=== PATIENT | male | born 1945 | race Caucasian/White ===

== ENCOUNTER → 2016-09-28 | Outpatient (CLI) | payer OTHER | LOC: BHFA 10:15 | PROVIDERS: ATTEND Internal Medicine Cardiovascular Disease | DX: I47.1 Supraventricular tachycardia (principal); I25.10 Atherosclerotic heart disease of native coronary artery without angina pectoris; I10 Essential (primary) hypertension; I44.7 Left bundle-branch block, unspecified; I42.9 Cardiomyopathy, unspecified; E78.5 Hyperlipidemia, unspecified ==

== ENCOUNTER 2017-02-19 13:23 | Emergency (ER) | payer OTHER ==
[2017-02-19 13:41] VITALS: TEMP 98.2
[2017-02-19] MEDS ORDERED: NS 1,000 ML IV ONE (15:02)
--- NOTE | 2017-02-19 15:05 | EDPHY ---
H & P Stated Complaint: nontraumatic pain at back of l knee for last 2 weeks Time Seen by Provider: 02/19/17 14:54 HPI/ROS: CHIEF COMPLAINT: Left knee pain HISTORY OF PRESENT ILLNESS: Patient is a 72-year-old man who comes to the emergency department complaining of intermittent sharp shooting brief pain to the lateral posterior aspect of his left knee. He cannot find any positions or movements that seem to exacerbate his knee. Occasionally wakes him up from sleep because it is painful. This is happened for about the last 2 days. He is concerned about a blood clot and came to the emergency department. He has a history of coronary artery disease. He is not on any blood thinners. He does also complain of increased fatigability. He states that he can only walk for about half of a block before he gets tired. He denies chest pain or shortness of breath. He states that this is not unusual for him but over the last few days it has come sooner than usual. He denies fevers. He denies recent illness. He denies nausea vomiting or diarrhea. He has been eating well. REVIEW OF SYSTEMS: Constitutional: denies: chills, fever, recent illness, recent injury EENTM: denies: blurred vision, double vision, nose congestion Respiratory: denies: cough, shortness of breath Cardiac: denies: chest pain, irregular heart rate, lightheadedness, palpitations Gastrointestinal/Abdominal: denies: abdominal pain, diarrhea, nausea, vomiting, blood streaked stools Genitourinary: denies: dysuria, frequency, hematuria, pain Musculoskeletal: See HPI Skin: denies: lesions, rash, jaundice, bruising Neurological: denies: headache, numbness, paresthesia, tingling, dizziness, weakness Hematologic/Lymphatic: denies: blood clots, easy bleeding, easy bruising Immunologic/allergic: denies: HIV/AIDS, transplant EXAM: GENERAL: Well-appearing, well-nourished and in no acute distress. HEAD: Atraumatic, normocephalic. EYES: Pupils equal round and reactive to light, extraocular movements intact, sclera anicteric, conjunctiva are normal. ENT: TMs normal, nares patent, oropharynx clear without exudates. Moist mucous membranes. NECK: Normal range of motion, supple without lymphadenopathy or JVD. LUNGS: Breath sounds clear to auscultation bilaterally and equal. No wheezes rales or rhonchi. HEART: Regular rate and rhythm without murmurs, rubs or gallops. ABDOMEN: Soft, nontender, normoactive bowel sounds. No guarding, no rebound. No masses appreciated. BACK: No CVA tenderness, no spinal tenderness, step-offs or deformities EXTREMITIES: Normal range of motion, no pitting or edema. No clubbing or cyanosis. NEUROLOGICAL: Cranial nerves II through XII grossly intact. Normal speech, normal gait. 5/5 strength, normal movement in all extremities, normal sensation PSYCH: Normal mood, normal affect. SKIN: Warm, dry, normal turgor, no visible rashes or lesions. Source: Patient Exam Limitations: No limitations - Personal History Current Tetanus/Diphtheria Vaccine: Yes Tetanus Vaccine Date: unsure - Medical/Surgical History Hx Asthma: No Hx Chronic Respiratory Disease: No Hx Diabetes: No Hx Cardiac Disease: Yes Hx Renal Disease: No Hx Cirrhosis: No Hx Alcoholism: No Hx HIV/AIDS: No Hx Splenectomy or Spleen Trauma: No Other PMH: 3 cardiac stents, arrythmias, shoulder surgery, svt - Family History Significant Family History: No pertinent family hx - Social History Smoking Status: Never smoked Alcohol Use: None Drug Use: None Constitutional: Initial Vital Signs Temperature (C) 36.8 C 02/19/17 13:38 Heart Rate 64 02/19/17 13:38 Respiratory Rate 18 02/19/17 13:38 Blood Pressure 151/74 H 02/19/17 13:38 O2 Sat (%) 96 02/19/17 13:38 O2 Delivery Mode Room Air Allergies/Adverse Reactions: pineapple [Pineapple] Allergy (Verified 02/19/17 13:37) cantaloupe Allergy (Unknown, Uncoded 04/28/10 14:14) Unknown Home Medications: Medication Instructions Recorded Aspirin [Aspirin 81mg] 81 mg PO DAILY@1800 10/07/11 Multivitamins [Multivitamin (OTC)] 1 tab PO DAILY 10/07/11 Rosuvastatin Calcium [Crestor] 20 mg PO DAILY 10/07/11 Ubidecarenone [Co Q10] 60 mg PO DAILY 10/07/11 Herbals/Supplements -Info Only 1 tab PO DAILY 07/11/13 SOTALOL 05/31/16 Zantac 02/19/17 Medical Decision Making - Diagnostics EKG Interpretation: An EKG obtained and was read and documented in trace view. Please see trace view for full reading and report. Sinus rhythm with left branch block and significant repolarization abnormality unchanged from previous. Imaging Results: Imaging Impressions Extremity Venous Study 02/19/17 15:02 Impression: No evidence of deep vein thrombosis in the left lower extremity. Results called to Dr. Gonzalez. Imaging: Discussed imaging studies w/ rfid manager Radiologist ED Course/Re-evaluation: We discussed the ultrasound lab results which are reassuring. The patient feels reassured and he and his declined any further workup or testing at this time. They will follow up with her primary doctor. We discussed indications for returning to the emergency department. Have him follow up with Orthopedics as well for further evaluation. Differential Diagnosis: Partial list of the Differential diagnosis considered include but were not limited to; meniscus injury, DVT, electrolyte abnormality and although unlikely based on the history and physical exam, I also considered acute coronary disease, arrhythmia, anemia, infection. I discussed these differential diagnoses and the plan with the patient as well as the usual and expected course. The patient understands that the diagnosis is provisional and that in medicine we are not always correct and that further workup is often warranted. Usual and customary warnings were given. All of the patient's questions were answered. The patient was instructed to return to the emergency department should the symptoms at all worsen or return, otherwise to followup with the physician as we discussed. - Data Points Laboratory Results: Laboratory Results 02/19/17 15:05 02/19/17 15:05 02/19/17 02/19/17 02/19/17 15:05 15:05 15:05 WBC 6.24 10^3/uL 10^3/uL (3.80-9.50) RBC 4.35 10^6/uL L 10^6/uL (4.40-6.38) Hgb 13.6 g/dL L g/dL (13.7-17.5) Hct 40.3 % % (40.0-51.0) MCV 92.6 fL fL (81.5-99.8) MCH 31.3 pg pg (27.9-34.1) MCHC 33.7 g/dL g/dL (32.4-36.7) RDW 12.6 % % (11.5-15.2) Plt Count 142 10^3/uL L 10^3/uL (150-400) MPV 9.5 fL fL (8.7-11.7) Neut % (Auto) 65.4 % % (39.3-74.2) Lymph % (Auto) 19.4 % % (15.0-45.0) Haines % (Auto) 8.3 % % (4.5-13.0) Eos % (Auto) 6.1 % % (0.6-7.6) Baso % (Auto) 0.5 % % (0.3-1.7) Nucleat RBC Rel Count 0.0 % % (0.0-0.2) Absolute Neuts (auto) 4.08 10^3/uL 10^3/uL (1.70-6.50) Absolute Lymphs (auto) 1.21 10^3/uL 10^3/uL (1.00-3.00) Absolute Monos (auto) 0.52 10^3/uL 10^3/uL (0.30-0.80) Absolute Eos (auto) 0.38 10^3/uL 10^3/uL (0.03-0.40) Absolute Basos (auto) 0.03 10^3/uL 10^3/uL (0.02-0.10) Absolute Nucleated RBC 0.00 10^3/uL 10^3/uL (0-0.01) Immature Gran % 0.3 % % (0.0-1.1) Immature Gran # 0.02 10^3/uL 10^3/uL (0.00-0.10) PT 14.0 SEC SEC (12.0-15.0) INR 1.09 (0.83-1.16) APTT 35.6 SEC SEC (23.0-38.0) Sodium 141 mEq/L mEq/L (134-144) Potassium 4.3 mEq/L mEq/L (3.5-5.2) Chloride 109 mEq/L mEq/L (97-110) Carbon Dioxide 21 mEq/l L mEq/l (22-31) Anion Gap 11 mEq/L mEq/L (8-16) BUN 16 mg/dL mg/dL (7-23) Creatinine 1.0 mg/dL mg/dL (0.7-1.3) Estimated GFR > 60 Glucose 86 mg/dL mg/dL (70-100) Calcium 8.8 mg/dL mg/dL (8.5-10.4) Troponin I < 0.012 ng/mL ng/mL (0-0.034) Medications Given: Discontinued Medications Sodium Chloride (Ns) 1,000 mls @ 0 mls/hr IV ONCE ONE; Wide Open PRN Reason: Protocol Stop: 02/19/17 15:03 Last Admin: 02/19/17 15:14 Dose: 1,000 mls Departure - Departure Disposition: Home, Routine, Self-Care Clinical Impression: Knee pain, left Qualifiers: Chronicity: acute Qualified Code(s): M25.562 - Pain in left knee Condition: Fair Instructions: Knee Pain (ED) Referrals: Pastor Garcia MD [Primary Care Provider] - As per Instructions Delmar Murcia MD [Medical Doctor] - As per Instructions
[2017-02-19 15:16] LABS: % IMMATURE GRANULYOCYTES 0.3 % (0.0-1.1); ABSOLUTE IMMATURE GRANULOCYTES 0.02 10^3/uL (0.00-0.10); ADD DIFF? NO; ADD MORPH? NO; ADD SCAN? NO; ATYPICAL LYMPHOCYTE FLAG 0 (0-99); FRAGMENT RBC FLAG 0 (0-99); HEMATOCRIT 40.3 % (40.0-51.0); HEMOGLOBIN 13.6 g/dL (13.7-17.5); LEFT SHIFT FLG 0 (0-99); LIPEMIA HEMOLYSIS FLAG 80 (0-99); MEAN CELL HEMOGLOBIN 31.3 pg (27.9-34.1); MEAN CELL HEMOGLOBIN CONCENTR. 33.7 g/dL (32.4-36.7); MEAN CELL VOLUME 92.6 fL (81.5-99.8); MEAN PLATELET VOLUME 9.5 fL (8.7-11.7); PLATELET CLUMPS FLAG 0 (0-99); PLATELET COUNT 142 10^3/uL (150-400); RED BLOOD CELL COUNT 4.35 10^6/uL (4.40-6.38); RED CELL DISTRIBUTION WIDTH 12.6 % (11.5-15.2)
--- NOTE | 2017-02-19 15:20 | CPEKG ---
Heart Rate: 53 RR Interval: 1132 P-R Interval: 172 QRSD Interval: 168 QT Interval: 540 QTC Interval: 508 P Neon: 40 QRS Neon: -30 T Wave [place]: 143 EKG Severity - ABNORMAL ECG - EKG Impression: SINUS RHYTHM EKG Impression: LEFT BUNDLE BRANCH BLOCK EKG Impression: unchanged from previous Electronically Signed By: Anders Gonzalez 19-Feb-2017 15:27:10
[2017-02-19 15:31] LABS: ANION GAP 11 mEq/L (8-16); CALCIUM 8.8 mg/dL (8.5-10.4); CARBON DIOXIDE 21 mEq/l (22-31); CHLORIDE 109 mEq/L (97-110); GLOMERULAR FILTRATION RATE > 60; GLUCOSE 86 mg/dL (70-100); POTASSIUM 4.3 mEq/L (3.5-5.2); SODIUM 141 mEq/L (134-144)
[2017-02-19 15:32] LABS: INR 1.09 (0.83-1.16)
[2017-02-19 15:33] LABS: APTT 35.6 SEC (23.0-38.0)
[2017-02-19 15:42] LABS: TROPONIN I < 0.012 ng/mL (0-0.034)
[2017-02-19 16:26] VITALS: BP 152/92; PULSE 70; RESP 16; O2SAT 97
== END 2017-02-19 16:25 | disposition home or self-care (01) ==
DX: M25.562 Pain in left knee (principal); E86.9 Volume depletion, unspecified; Z79.82 Long term (current) use of aspirin

== ENCOUNTER 2017-10-08 10:41 | Inpatient (IN) | payer OTHER ==
--- NOTE | 2017-10-08 11:23 | CPEKG ---
Heart Rate: 54 RR Interval: 1111 P-R Interval: 168 QRSD Interval: 160 QT Interval: 492 QTC Interval: 467 P [place]: 56 QRS [place]: -22 T Wave [place]: 158 EKG Severity - ABNORMAL ECG - EKG Impression: SINUS RHYTHM EKG Impression: LEFT BUNDLE BRANCH BLOCK Electronically Signed By: Lilia Milner 08-Oct-2017 15:05:45
[2017-10-08 11:57] LABS: PLATELET COUNT 171 10^3/uL (150-400)
--- NOTE | 2017-10-08 12:06 | EDPHY ---
H & P Time Seen by Provider: 10/08/17 11:24 HPI/ROS: CHIEF COMPLAINT: Epigastric heaviness HISTORY OF PRESENT ILLNESS: 72-year-old male with CAD presents with epigastric heaviness. Over the past 3 months, he has had multiple episodes of epigastric heaviness. This morning he was driving and had the onset of epigastric heaviness. The heaviness was severe for approximately 5 min and then completely resolved in approximately 30 min. Associated with heaviness in his head and difficulty making decisions. He is currently asymptomatic. He took an aspirin last evening. This discomfort is similar to his prior CAD. These episodes seem to occur randomly, often when he is driving, not necessarily with exertion. 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 Melendrez and Dr. Alarcon Smoking Status: Never smoked Physical Exam: General Appearance: Alert, pleasant Eyes: Pupils equal and round, no conjunctival pallor or injection ENT, Mouth: Mucous membranes moist Neck: Normal inspection Respiratory: Lungs are clear to auscultation Cardiovascular: Regular rate and rhythm Gastrointestinal: Abdomen is soft and nontender Neurological: A&O, nonfocal exam Skin: Warm and dry, no rash Extremities: Nontender, no pedal edema Psychiatric: Anxious Constitutional: Initial Vital Signs Temperature (C) 36.7 C 10/08/17 10:50 Heart Rate 60 10/08/17 10:50 Respiratory Rate 16 10/08/17 10:50 Blood Pressure 153/74 H 10/08/17 10:50 O2 Sat (%) 97 10/08/17 10:50 O2 Delivery Mode Room Air Allergies/Adverse Reactions: gabapentin Allergy (Verified 10/08/17 13:15) Other-Enter Comments pineapple [Pineapple] Allergy (Verified 10/08/17 10:48) cantaloupe Allergy (Unknown, Uncoded 04/28/10 14:14) Unknown Home Medications: Medication Instructions Recorded Sotalol HCl [Sotalol] 80 mg PO BID 05/31/16 Ranitidine HCl [Zantac] 150 mg PO DAILY 02/19/17 Aspirin [Aspirin 81mg (*)] 162 mg PO HS 10/08/17 Herbals/Supplements -Info Only 1 ea PO DAILY 10/08/17 Lisinopril [Zestril 5 mg (*)] 5 mg PO DAILY 10/08/17 Rosuvastatin Calcium [Crestor 20mg 10 mg PO HS 10/08/17 (*)] Medical Decision Making - Diagnostics EKG Interpretation: EKG interpreted by me reveals sinus rhythm, rate 54, left bundle branch block. Imaging Results: Chest X-Ray 10/08/17 11:49 Impression: No discrete intrathoracic pathology. ED Course/Re-evaluation: This patient presents with epigastric heaviness, similar to prior anginal symptoms. Stat EKG reveals a left bundle branch block. He is currently asymptomatic and took an aspirin within the last 24 hr. He will clearly need further cardiac evaluation given multiple episodes of typical anginal discomfort. The hospitalist service was consulted for admission. [facility] was consulted, d/w Laya, will see the patient during his admission. Pt asymptomatic throughout his emergency department stay. monitor technician revealed normal sinus rhythm throughout. Initial troponin is normal. I do not suspect an alternative etiology for his discomfort. No risk factors for pulmonary embolism. Differential Diagnosis: Differential diagnosis includes though it is not limited to pneumonia, pneumothorax, pulmonary embolism, aortic dissection, pericarditis, acute coronary syndrome. - Data Points Laboratory Results: Laboratory Results 10/08/17 11:45 10/08/17 11:45 Medications Given: Aspirin (Aspirin) [address] [facility] Stop: 04/06/18 20:59 Last Admin: 10/08/17 20:24 Dose: 162 mg Pantoprazole Sodium (Protonix) 40 mg PO DAILY [facility] Stop: 04/06/18 14:14 Last Admin: 10/08/17 15:37 Dose: 40 mg Rosuvastatin Calcium (Crestor) 10 mg PO HS [facility] Stop: 04/06/18 20:59 Last Admin: 10/08/17 20:24 Dose: 10 mg Senna/Docusate Sodium (Senokot-S) 1 tab PO BID [facility] Stop: 04/06/18 14:29 Last Admin: 10/08/17 20:24 Dose: 1 tab Sotalol HCl (Betapace) 80 mg PO BID [facility] Stop: 04/06/18 20:59 Last Admin: 10/08/17 20:24 Dose: 80 mg Discontinued Medications Al Hydroxide/Mg Hydroxide (Maalox Susp) 30 ml PO ONCE ONE Stop: 10/08/17 14:31 Last Admin: 10/08/17 15:37 Dose: 30 ml Hyoscyamine Sulfate (Levsin, Hyomax-Sl) 0.25 mg PO ONCE ONE Stop: 10/08/17 14:31 Last Admin: 10/08/17 15:36 Dose: 0.25 mg Lidocaine (Lidocaine 2% Viscous) 15 ml PO ONCE ONE Stop: 10/08/17 14:31 Last Admin: 10/08/17 15:37 Dose: 15 ml Departure - Departure Disposition: [facility] Inpatient Acute Clinical Impression: Chest pain Qualifiers: Chest pain type: precordial pain Qualified Code(s): R07.2 - Precordial pain Condition: Fair
[2017-10-08] MEDS ORDERED: ACETAMINOPHEN 325 MG TAB PO PRN (13:26)
[2017-10-08] MEDS ORDERED: HYOSCYAMINE SULFATE 0.125 MG TAB PO ONE (14:30)
[2017-10-08] MEDS ORDERED: MAG HYDROX/AL HYDROX/SIMETH 30 ML UDCUP PO ONE (14:30)
[2017-10-08] MEDS ORDERED: LIDOCAINE 2% VISCOUS 15 ML UDCUP PO ONE (14:30)
--- NOTE | 2017-10-08 14:51 | GHP ---
[f rep st] HISTORY AND PHYSICAL DATE OF ADMISSION: 10/08/2017 CHIEF COMPLAINT: Epigastric discomfort. HISTORY OF PRESENT ILLNESS: A 72-year-old male with a history of coronary artery disease status post stenting x3, who presents with reports of episodes of epigastric pressure and discomfort that initia lly began in July of 2017. Patient reports that the episodes most predictably would come on while he was in his car driving at more rapid speeds. The pain would then spontaneously resolve. The agustín n does not radiate from the epigastric area, occasionally associated with shortness of breath but juan jose t it has been more common in the past few weeks. Patient reports that the epigastric discomfort is m ore predictably associated with fogginess in his thought process while he is transiently having the d iscomfort. Patient reports he would occasionally have these episodes, but in the last month it has b ecome far more frequent where he is now experiencing episodes 2-3 times a day. Patient says these ep isodes can additionally occur when not driving his car. They can occur at rest and also additionally occur with exertion. He also notices more frequently that they happen after eating a large meal or eating rapidly. Patient denies any burning discomfort in his abdomen. He does report recently more notable shortness of breath with exertion. Denies any palpitations. Denies any vision changes. Den ies headaches. Patient runs mildly constipated. Denies any dysuria. Does describe occasional frequ ency. Denies any blood in his stools. Denies lower extremity edema. Denies fevers or chills. He h as noted some rhinorrhea recently. Denies any cough. PAST MEDICAL HISTORY: 1. Coronary artery disease status post stenting. 2. 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 3. Hypertension. 4. Hyperlipidemia. FAMILY HISTORY: Positive for coronary disease in the male relatives on his father's side, most of wh ich in their 60s or 70s or had their 1st cardiac events in their 60s or 70s. SOCIAL HISTORY: Negative for tobacco. He enjoys a glass of wine in the evenings. Does not use illi cit drugs or marijuana. REVIEW OF SYSTEMS: A 10-point review of systems is negative with the exception of that reported in t he HPI. PHYSICAL EXAMINATION: VITAL SIGNS: Blood pressure 168/81, heart rate 54, respiratory rate 17, 99% o n room air, 36.4. GENERAL: This is a healthy-appearing middle-aged male in no acute distress. HEEN T: Notable for moist mucous membranes. Eye exam is negative for any icterus. CARDIAC: Patient is regular rate and rhythm. A quiet systolic murmur is appreciated. PULMONARY: Good respiratory effor t. Clear to auscultation bilaterally. GASTROINTESTINAL: Positive bowel sounds. ABDOMEN: Soft and nontender. MUSCULOSKELETAL: Negative for any lower extremity edema. SKIN: Negative for any rashe s. NEUROLOGIC: He is alert and oriented x3. PSYCHIATRIC: He is pleasant and cooperative on interv iew and examination. DATA: White count 5.3, creatinine 1.0. Troponin less than 0.012. EKG which I personally reviewed a nd interpreted, shows sinus rhythm with left bundle branch block, unchanged from previous. ASSESSMENT AND PLAN: This is a 72-year-old male presenting with epigastric discomfort. 1. Acute epigastric discomfort. Patient says this pain is similar to cardiac episodes he has had in the past but also similar to when he had symptomatic reflux. I believe either are potential explana tions for his complaint. Patient is certainly high risk for cardiac complications. We will admit hi m for telemetry monitoring, rule out with serial troponins and EKGs, and plan for Lexiscan stress ovidio ting in the morning if he rules out. Additionally, we will initiate a daily proton pump inhibitor an d trial a GI cocktail to see if we can get immediate symptom relief from the GI cocktail. 2. Dyspnea on exertion. Patient's last echo was in [address] [facility]. EF at that time was 55%. We will repeat a transthoracic echocardiogram this evening, additionally, looking for segmental wal l motion abnormalities. 3. Coronary artery disease. We will continue patient's aspirin, statin, and NAOMI inhibitor. 4. Wide-complex tachycardia. Patient has been on sotalol and stable. We will continue his sotalol dosing without alteration. Monitor on telemetry. 5. Prophylaxis with Lovenox. DIET: Cardiac. DISPOSITION: I expect less than 2 midnights if patient's stress testing is negative. Patient should be a candidate for discharge tomorrow. Discussed the case with the RN. We will start with GI cocktail this afternoon and follow the patient on telemetry this evening. /[id number]/MODL
[2017-10-08] MEDS: SENNOSIDES/DOCUSATE SODIUM TAB PO SCH ×2 (15:37→20:24)
[2017-10-08] MEDS: PANTOPRAZOLE SODIUM 40 MG TAB PO SCH (15:37)
--- NOTE | 2017-10-08 17:00 | ECHO ---
[email or web address] [address] Main: [phone] Fax: Transthoracic Echocardiogram Name: NILESH JOHNS MR#: [id number] Study Date: 10/08/2017 Study Time: 02:31 PM Date of : 1945 Age: 72 year(s) Height: 182.9 cm (72 in.) Weight: 85.28 kg (188 lb.) BSA: 2.08 m2 Gender: Male Examination: Echo Indication: chest pain and sob with exertion Image Quality: Adequate Contrast: Requested by: Nolvia Allen BP: 166 mmHg/81 mmHg Heart Rate: Rhythm: Indication: chest pain and sob with exertion Procedure Staff Prop And Effects Designer: Ely Reid [facility] Reading Physician: Delmar Lerner MD Requesting Provider: Conclusions: Normal size left ventricle. Mild concentric LV hypertrophy. EF is 48 %. Grade 1 diastolic dysfunction (abnormal relaxation). Apical and mid severe hypokinesis of the interventricular septum. Mild mitral valve regurgitation is present. Aortic sclerosis is present. Moderate aortic valve regurgitation is present. Mild tricuspid regurgitation is present. Right ventricular systolic pressure measures 25mmHg. Measurements: Chambers Valvular Assessment AV/MV Valvular Assessment TV/PV Normal Normal Normal Name Value Range Name Value Range Name Value Range Ao Brigid (MM): 3.0 cm (2.2 cm-3.7 AV Vmax: 1.24 m/s (1 m/s-1.7 TR Vmax: 2.22 mm/s ( - ) cm) m/s) TR PGmax: 20 mmHg ( - ) IVSd (2D): 1.0 cm (0.6 cm-1.1 AV maxP mmHg ( - ) syst. PAP: 25 mmHg ( - ) cm) LVOT Vmax: 0.81 m/s (0.7 m/s-1.1 PV Vmax: 1.09 m/s (0.6 m/s-0.9 LVDd (2D): 5.4 cm (4.2 cm-5.9 m/s) m/s) cm) AR (PHT): 829 ms ( - ) PV PGmax: 5 mmHg ( - ) LVDs (2D): 3.9 cm (2.1 cm-4 MV E Vmax: 0.31 m/s ( - ) cm) MV A Vmax: 0.68 m/s ( - ) LVPWd (2D): 1.0 cm (0.6 cm-1 MV E/A: 0.46 ( - ) cm) LVEF (BP): 48 % (>=55 %) RVDd(2D): 3.4 cm (1.9 cm-3.8 cmmm) Continued Measurements: Patient: NILESH JOHNS Study Date: 10/08/2017 Page 1 of 2 02:31 PM Chambers Valvular Assessment AV/MV Valvular Assessment TV/PV Name Value Name Value Name Value LADs Lon.0 cm MV DecTime: 306 m/s CVP (est.): 5 mmHg LA Area: 20.4 cm2 MV E' Septal: 0.05 m/s LA Volume: 66 ml MV E/E' Septal: 6.30 LA Volume Index: 31.7 ml/m2 MV E/E' Lateral: 5.50 AR Vmax: 4.41 cm/s Additional Vessels Name Value Ao Ascendin.9 cm Findings: Left Ventricle: Normal size left ventricle. Mild concentric LV hypertrophy. Mildly reduced systolic LV function. EF is 48 %. Grade 1 diastolic dysfunction (abnormal relaxation). Apical and mid severe hypokinesis of the interventricular septum. Right Ventricle: Normal size right ventricle. Normal RV function. Left Atrium: The left atrium is normal in size. Right Atrium: The right atrium is normal in size. Mitral Valve: The mitral valve is normal in appearance and function. There is mild thickening of the mitral valve leaflets. Mild mitral valve regurgitation is present. No mitral stenosis is present. Aortic Valve: The aortic valve is tri-leaflet and functions normally. Aortic sclerosis is present. Moderate aortic valve regurgitation is present. No aortic valve stenosis is present. Tricuspid Valve: The tricuspid valve is normal in appearance and function. Mild tricuspid regurgitation is present. Right ventricular systolic pressure measures 25mmHg. The pulmonary artery pressure is normal. Pulmonic Valve: Pulmonary valve not well visualized. Aorta: Normal size aortic root measuring 3.0 cm. Normal size ascending aorta measuring 2.9 cm. IVC: The IVC is normal sized. Pericardium: No pericardial effusion. (No Signature Object) Patient: NILESH JOHNS Study Date: 10/08/2017 Page 2 of 2 02:31 PM [id number]
--- NOTE | 2017-10-08 17:54 | CPEKG ---
Heart Rate: 53 RR Interval: 1132 P-R Interval: 164 QRSD Interval: 166 QT Interval: 504 QTC Interval: 474 P [place]: 57 QRS [place]: -18 T Wave [place]: 157 EKG Severity - ABNORMAL ECG - EKG Impression: SINUS RHYTHM EKG Impression: LEFT BUNDLE BRANCH BLOCK Electronically Signed By: Jona Mcclain 08-Oct-2017 18:47:23
[2017-10-08] MEDS: ASPIRIN 81 MG CHEWABLE TAB PO SCH (20:24)
[2017-10-08] MEDS: ROSUVASTATIN CALCIUM 20 MG TAB PO SCH (20:24)
[2017-10-08] MEDS: SOTALOL HCL 80 MG TAB PO SCH (20:24)
[2017-10-09] MEDS ORDERED: LISINOPRIL 5 MG TAB PO SCH ×2 (09:00→09:56)
[2017-10-09] MEDS ORDERED: Herbals/Supplements -Info Only PO SCH (09:00)
[2017-10-09] MEDS ORDERED: NON-FORMULARY NEW DRUG (Ranitidine Hcl [Zantac] 150 MG) PO SCH (09:00)
[2017-10-09] MEDS: PANTOPRAZOLE SODIUM 40 MG TAB PO SCH (09:08)
[2017-10-09] MEDS: SENNOSIDES/DOCUSATE SODIUM TAB PO SCH ×2 (09:08→20:45)
[2017-10-09] MEDS: ENOXAPARIN 40 MG/0.4 ML SYR SC SCH (09:10)
[2017-10-09] MEDS: SOTALOL HCL 80 MG TAB PO SCH ×2 (09:12→20:24)
[2017-10-09] MEDS: FAMOTIDINE 20 MG TAB PO SCH (09:13)
[2017-10-09] MEDS ORDERED: REGADENOSON 0.4 MG/5 ML SYR IVP ONE (09:21)
[2017-10-09] MEDS ORDERED: LISINOPRIL 5 MG TAB PO ONE ×2 (09:55→14:00)
--- NOTE | 2017-10-09 09:59 | PDCARST ---
CAR Stress Test Results Type of Stress Test: Lexiscan stress test Indication: epigastric pain, CAD, LBBB Description of Procedure: After informed consent was obtained, pt was established to ECG, blood pressure, HR and oximetry monitoring. STRESS EKG AND HEMODYNAMIC DATA. Resting heart rate: 61 BPM. Resting ECG: SR, LBBB. Resting blood pressure: 156/92 mmHg. O2 saturation at rest: 99%. Peak heart rate: 100 BPM. Peak blood pressure: 172/74 mmHg. Arrhythmias: none. Symptoms: The patient experienced no typical symptoms of angina during stress or recovery. Stress/Infusion ECG: No change in LBBB pattern with Lexiscan. Stress/infusion O2 saturation: 99% Impression: Uneventful Lexiscan infusion. Conclusion: Await nuclear images.
--- NOTE | 2017-10-09 12:38 | ASMTCMCOM ---
CM Note CM Note Notes: Discussed pt's case in rounds. Pt lives at home w/. No dc needs anticipated at this time. CM available if needs arise. Date Signed: 10/09/2017 12:38 PM Electronically Signed By:Tania Daley RN
--- NOTE | 2017-10-09 17:42 | HOSPPROG ---
Hospitalist Progress Note Assessment/Plan: Assessment: 72-year-old male presents with acute abdominal pain and dizziness concerning for anginal equivalent Plan: 1. Possible unstable angina. Acute, new problem this provider, further workup indicated. Evidenced by mid epigastric pain and dizziness with onset at rest, very similar in character to previous anginal pain which necessitated previous cardiac stents -discussed with Dr. David Rodarte, he reports to me that the patient's nuclear images on stress are abnormal, demonstrating abnormal perfusion in the inferoseptal and apical areas -discussed with Dr. Delmar Lerner, he is compared these images to the patient's previous nuclear stress test images as well as his echocardiogram which demonstrates apical and septal hypokinesis, and Dr. Lerner recommends completion of the resting images tomorrow given the patient's high risk of obstructive coronary disease -if the stress images and resting images demonstrate mismatch, indicating ischemia, then the patient will be taken to the laboratory mechanic helper tomorrow afternoon -will continue his home anti-platelet, statin, NAOMI-inhibitor, sublingual nitroglycerin if he experiences recurrence of symptoms -given his high risk potential for unstable angina, I did not recommend to the patient that he be discharged and follow up with resting images as an outpatient , as this could be potentially fatal if this has been the clinical manifestation of unstable angina -will also check liver panel tomorrow and if any abnormalities in transaminases , will also get right upper quadrant ultrasound 2. Coronary artery disease. Chronic, continue medications 3. Wide complex tachycardia. Continue sotalol, K4.5 Diet. Cardiac, NPO after midnight Prophylaxis. High risk patient, Lovenox 40 Code. Full Disposition. Upgraded to inpatient admission status given that his anticipated length stay is greater than 48 hr for reasonable medical necessity including possible unstable angina in the setting of coronary artery disease, placing the patient high risk for possible morbidity and/or mortality if his condition is not fully evaluated and today is had abnormal diagnostic stress test requiring further nuclear images tomorrow and possible cardiac catheterization. Subjective: Patient reports no ongoing epigastric pain Objective: Vital Signs Temp Pulse Resp BP Pulse Ox 36.3 C 79 12 129/71 H 95 10/09/17 16:00 10/09/17 16:00 10/09/17 16:00 10/09/17 16:00 10/09/17 16:00 Laboratory Results 10/09/17 03:52 10/08/17 10/09/17 10/10/17 05:59 05:59 05:59 Intake Total 100 480 Balance 100 480 - Physical Exam Constitutional: no apparent distress, appears nourished, not in pain Cardiovascular: regular rate and rhythym, no murmur, rub, or gallop, No edema Respiratory: no respiratory distress, no rales or rhonchi, clear to auscultation Gastrointestinal: normoactive bowel sounds, tenderness (Right upper quadrant, mild), No guarding, No distension Neurologic: AAOx3, sensation intact bilaterally, No weakness Psychiatric: interacting appropriately, not anxious, not encephalopathic, thought process linear ICD10 Worksheet Patient Problems: Problems Problem Status Onset Supraventricular tachycardia Acute Chest pain Acute
--- NOTE | 2017-10-09 18:07 | PDMN ---
Medical Necessity Medical necessity: C/M review: est. > 2 MN LOS for eval and TX of acute abdominal pain and dizziness concerning for angina equivalent, possible unstable angina, 10/09/2017 abnormal myocardial perfusion scan demonstrating abnormal perfusion in the inferoseptal and apical areas requiring planned 2017 myocardial perfusion scan resting images - if stress images and resting images mismatch, then possible cardiac catheterization 10/10/2017, requiring ongoing cardiac monitoring, comorbid CAD, wide complex tachycardia per 2017 Hospitalist progress note.
[2017-10-09] MEDS: ASPIRIN 81 MG CHEWABLE TAB PO SCH (20:23)
[2017-10-09] MEDS: ROSUVASTATIN CALCIUM 20 MG TAB PO SCH (20:24)
[2017-10-10 04:18] LABS: PLATELET COUNT 121 10^3/uL (150-400)
[2017-10-10 07:42] VITALS: TEMP 97.7
[2017-10-10] MEDS: PANTOPRAZOLE SODIUM 40 MG TAB PO SCH (08:25)
[2017-10-10] MEDS ORDERED: LISINOPRIL 5 MG TAB PO SCH (09:00)
--- NOTE | 2017-10-10 09:29 | PDCARCONS ---
Cardiology Consult Reason for Consult: Abnormal nuclear stress test in the setting of dizziness Chief Complaint: Fogginess of the head Requesting Physician: Alejandro History of Present Illness: 72-year-old male with complex cardiovascular history admitted to the hospital on 10/08 with exacerbation of chronic fogginess of the right side of his head while driving. Patient has longstanding cardiovascular history. Begins in 2008 at which time he had PCI and stenting of the LAD. His coronary artery disease was in the setting of hypertension and dyslipidemia. He has been well managed. Patient has a longstanding chronic history of intermittent dizziness. He has had extensive arrhythmia evaluation including an EP test revealing known atrial tachycardia with aberrant left bundle branch block. He has a link monitor in place which has shown intermittent SVT which has been well controlled with longstanding sotalol. Most recent interrogation of his LINQ in May revealed no significant sustained dysrhythmia. His coronary artery disease has been stable on good medical therapy. He had an extensive coronary angiogram done 09/02/2015. At that time he had intravascular ultrasound was LAD and left main coronary which were unobstructed. His right coronary had no significant disease. Ejection fraction at that time was 48% with regional wall motion abnormalities. He has a known abnormal nuclear stress test with septal/inferior ischemia. This is felt to be secondary to his left bundle branch block. I do not expect that his nuclear stress Test has improved. Patient had a cardiac MRI done which excluded RV dysplasia and other significant cardiomyopathies. He had an echocardiogram done this hospitalization which continues to show mild mitral regurgitation aortic valve sclerosis with moderate aortic insufficiency. His right ventricular systolic pressure is 25 mm of mercury. He continues to have regional wall motion abnormalities as previously described. He has had a new nuclear stress test which continues to show a inferoseptal defect. Patient's fogginess is longstanding. This is associated with sitting upright in his car. He could also occur while eating breakfast. It is often associated with mid epigastric pressure. There is no nausea or vomiting. There is no diarrhea or constipation. He has had no true syncope or near syncope. He denies history of seizure activity. He has had no loss of continence. He has had a extraordinary workup for these episodes. He is currently pending and neurologic evaluation as well as ENT. He describes that the symptoms are confounded by anxiety. Interestingly enough while he was having episodes 1-2 times per day since he has been in the hospital he has had no further spells. He has been under the care of Dr. Wendy Alarcon for a long time and was last seen in June. At that time risk was well modified and he was tolerating sotalol well. He has had consultation with the EP service Dr. Allen. He has had consultation with the interventional Cardiology service Dr. Melendrez. History Information - Allergies/Home Medication List Allergies/Adverse Reactions: gabapentin Allergy (Verified 10/08/17 13:15) Other-Enter Comments pineapple [Pineapple] Allergy (Verified 10/08/17 10:48) cantaloupe Allergy (Unknown, Uncoded 04/28/10 14:14) Unknown Home Medications: Sotalol HCl [Sotalol] 80 mg PO BID 05/31/16 [Last Taken 10/08/17] Ranitidine HCl [Zantac] 150 mg PO DAILY 02/19/17 [Last Taken 10/08/17] Aspirin [Aspirin 81mg (*)] 162 mg PO HS 10/08/17 [Last Taken 10/07/17] Herbals/Supplements -Info Only 1 ea PO DAILY 10/08/17 [Last Taken Unknown] Lisinopril [Zestril 5 mg (*)] 5 mg PO DAILY 10/08/17 [Last Taken 10/08/17] Rosuvastatin Calcium [Crestor 20mg (*)] 10 mg PO HS 10/08/17 [Last Taken ] I have personally reviewed and updated: family history, medical history, social history, surgical history Past Medical History: - Past Medical History coronary artery disease, hypertension, hyperlipidemia, myocardial infarction, SVT - Surgical History Reports: pacemaker/AICD, coronary stent - Family History Positive for: non-pertinent - Social History Smoking Status: Never smoked Cardiac History - Cardiac History Cardiac Risk Factors: hypertension (>140/90), lipidemia Timing/Duration: Other (Chronic) Severity: moderate Severity Scale: 4 Location: epigastric, other (Pressure) Activities at Onset: rest Associated Symptoms: other (Fogginess) Physical Exam Physical Exam: Temp Pulse Resp BP Pulse Ox 36.5 C 60 18 151/82 H 96 10/10/17 07:38 10/10/17 07:38 10/10/17 07:38 10/10/17 07:38 10/10/17 07:38 Lab and Imaging 10/10/17 03:54 10/10/17 03:54 WBC 4.59 10^3/uL (3.80-9.50) 10/10/17 03:54 RBC 4.31 10^6/uL (4.40-6.38) L 10/10/17 03:54 Hgb 13.5 g/dL (13.7-17.5) L 10/10/17 03:54 Hct 40.2 % (40.0-51.0) 10/10/17 03:54 MCV 93.3 fL (81.5-99.8) 10/10/17 03:54 MCH 31.3 pg (27.9-34.1) 10/10/17 03:54 MCHC 33.6 g/dL (32.4-36.7) 10/10/17 03:54 RDW 12.5 % (11.5-15.2) 10/10/17 03:54 Plt Count 121 10^3/uL (150-400) L D 10/10/17 03:54 MPV 9.6 fL (8.7-11.7) 10/10/17 03:54 Neut % (Auto) 56.5 % (39.3-74.2) 10/10/17 03:54 Lymph % (Auto) 25.3 % (15.0-45.0) 10/10/17 03:54 [place] % (Auto) 12.6 % (4.5-13.0) 10/10/17 03:54 Eos % (Auto) 4.8 % (0.6-7.6) 10/10/17 03:54 Baso % (Auto) 0.4 % (0.3-1.7) 10/10/17 03:54 Nucleat RBC Rel Count 0.0 % (0.0-0.2) 10/10/17 03:54 Absolute Neuts (auto) 2.59 10^3/uL (1.70-6.50) 10/10/17 03:54 Absolute Lymphs (auto) 1.16 10^3/uL (1.00-3.00) 10/10/17 03:54 Absolute Monos (auto) 0.58 10^3/uL (0.30-0.80) 10/10/17 03:54 Absolute Eos (auto) 0.22 10^3/uL (0.03-0.40) 10/10/17 03:54 Absolute Basos (auto) 0.02 10^3/uL (0.02-0.10) 10/10/17 03:54 Absolute Nucleated RBC 0.00 10^3/uL (0-0.01) 10/10/17 03:54 Immature Gran % 0.4 % (0.0-1.1) 10/10/17 03:54 Immature Gran # 0.02 10^3/uL (0.00-0.10) 10/10/17 03:54 Sodium 141 mEq/L (135-145) 10/10/17 03:54 Potassium 4.2 mEq/L (3.5-5.2) 10/10/17 03:54 Chloride 109 mEq/L (97-110) 10/10/17 03:54 Carbon Dioxide 23 mEq/l (22-31) 10/10/17 03:54 Anion Gap 9 mEq/L (8-16) 10/10/17 03:54 BUN 20 mg/dL (7-23) 10/10/17 03:54 Creatinine 0.9 mg/dL (0.7-1.3) 10/10/17 03:54 Estimated GFR > 60 10/10/17 03:54 Glucose 78 mg/dL (70-100) 10/10/17 03:54 Calcium 8.6 mg/dL (8.5-10.4) 10/10/17 03:54 Total Bilirubin 1.0 mg/dL (0.1-1.4) 10/10/17 03:54 AST 23 IU/L (17-59) 10/10/17 03:54 ALT 46 IU/L (21-72) 10/10/17 03:54 Alkaline Phosphatase 44 IU/L (38-126) 10/10/17 03:54 Troponin I < 0.012 ng/mL (0.000-0.034) 10/08/17 18:33 Total Protein 6.0 g/dL (6.3-8.2) L 10/10/17 03:54 Albumin 3.6 g/dL (3.5-5.0) 10/10/17 03:54 Visualized and Interpreted imaging results: Yes Interpretation: 1. Echocardiogram shows ejection fraction 48% with regional wall motion abnormalities. Moderate aortic insufficiency. Right ventricular systolic pressure 25 mm of mercury. Mild mitral regurgitation. 2. Nuclear images show an inferoseptal defect similar to prior reported defect query left bundle branch block abnormality. 3. Coronary angiogram from August of 2015 no obstructive disease with ejection fraction of 48% regional wall motion abnormalities. EKG Interpretation: Positive for: left bundle branch block EKG additional interpertation: LINQ report from May revealed nonsustained SVT with left bundle branch block morphology. A/P Assessment: Impression: Acute on chronic exacerbation of fogginess of the right side of his head associated with difficulty driving and intermittent epigastric pressure (usually at breakfast). This is complicated by anxiety in the setting of known coronary artery disease and, so far, benign arrhythmic heart disease. Patient's clinical history, metabolic assessment with negative troponins do not suggest unstable coronary artery disease at this time. No further evaluation recommended other than clinical follow-up with Dr. Alarcon. He had extensive coronary angiogram done in August of 2015 for an abnormal nuclear stress test that showed no significant progression and widely patent stents. His echocardiogram shows stable LV function with no significant change in mild/mod valvular heart disease. Patient currently has a link monitor in place to exclude significant dysrhythmia as etiology for episodes of fogginess. There has been no correlation with symptoms so far. He continues to be stable on sotalol. Risk for coronary disease well modified with Cristian inhibition and statin therapy. He is on antiplatelet therapy. From my point of view the patient could be discharged with follow-up with Dr. Alarcon to review this hospital course. Agree with broadening differential diagnosis to include Neurology and ENT. Mid epigastric discomfort consistent with reflux/dyspepsia. It is quite interesting that with admission to the hospital he has had no further episodes despite accelerating episodes as an outpatient. It is also interesting that he does not have the symptoms well sitting upright other than in a car. Considering the longstanding nature of these problems, is extensive workup, I do not think we are going to find an etiology for these episodes during this hospitalization. Continued long-term follow-up by Dr. Alarcon and his primary care team seems to be most important at this point. He is hemodynamically stable on good medical therapy. We have excluded significant changes that would warrant further evaluation at this point. Plan: Continue current cardiac medications including Crestor and lisinopril along with daily aspirin. Outpatient follow-up Dr. Alarcon post discharge. No further cardiac testing this hospitalization. Continue LINQ monitoring. Review of Systems Review of Systems: - Review of Systems Constitutional: denies: chills, fever, malaise, weakness, weight loss EENTM: other. denies: blurred vision, double vision Respiratory: no symptoms reported Cardiac: no symptoms reported Gastrointestinal/Abdominal: abdominal pain. denies: nausea, vomiting, black stools, blood streaked stools Genitourinary: no symptoms Musculoskelatal: no symptoms Skin: no symptoms Neurological: anxiety, weakness Hematologic/Lymphatic: no symptoms reported Immunologic/allergic: no symptoms reported Past Medical History PMH: - Personal History Current Tetanus Diphtheria and Acellular Pertussis (TDAP): Yes Tetanus Vaccine Date: unsure - Medical/Surgical History Hx Asthma: No Hx Chronic Respiratory Disease: No Hx Cardiac Disease: Yes Hx Diabetes: No Hx Renal Disease: No Hx Alcoholism: No Hx Cirrhosis: No Hx HIV/AIDS: No Hx Splenectomy or Spleen Trauma: No Other PMH: 3 cardiac stents, arrythmias, shoulder surgery, svt, HTN, sinus surgery, LINQ 2 years ago - Social History Smoking Status: Never smoked Additional Social History:
[2017-10-10 12:56] VITALS: BP 166/91; PULSE 77; RESP 19; O2SAT 98
--- NOTE | 2017-10-10 13:01 | PDDCSUM ---
Discharge Summary Discharge Summary: DISCHARGE SUMMARY FOLLOW-UP ITEMS: Outpatient evaluation at [facility] and neurology clinic DATE OF ADMISSION: 10/08/2017 DATE OF DISCHARGE: 10/10/2017 DISCHARGE DIAGNOSES: 1. Acute abdominal pain and dizziness 2. Chronic coronary artery disease 3. Wide complex tachycardia 4. Abnormal stress test CONSULTATIONS: Cardiology PROCEDURES / IMAGING: Nuclear medicine stress test demonstrating septal wall infarct slightly larger than 2008 with some questionable kirill-infarct ischemia in the inferior wall Echocardiogram demonstrating ejection fraction 48%, grade 1 diastolic dysfunction CHIEF COMPLAINT: Acute abdominal pain and dizziness SUBJECTIVE: Patient is feeling well at time of discharge, he is not experiencing the symptoms PHYSICAL EXAM ON DISCHARGE: Systolic blood pressure is 130-150, heart rate 60, satting well on room air, alert awake oriented x3, ambulating without any reproducible dizziness, abdomen is soft nontender nondistended LABS ON DISCHARGE: Troponins negative HOSPITAL COURSE BY PROBLEM: The patient presented with acute abdominal pain and dizziness, similar in character to angina experienced back in 2008 prior to a myocardial infarction and cardiac catheterization with subsequent stents placed. Consequently, the patient's evaluation consisted of ruling out unstable angina, as the symptoms had occurred at rest. The patient was placed on telemetry, cycle cardiac enzymes, and underwent nuclear medicine stress testing. His stress images from 10/09 demonstrated focal defects and resting images were required on 10/10. Given patient's high risk nature and history of coronary artery disease with prior infarct, it was deemed unsafe to discharge the patient and have him follow up for resting out patient images an outpatient interpretation. The patient underwent the resting images on 10/10 and these demonstrated septal wall infarct slightly larger than 2008 with some questionable kirill-infarct ischemia in the inferior wall. Dr. Kian Chen consulted in the patient's care, and his interpretation of these results were that the patient was unlikely to have obstructive coronary disease leading to his presenting symptoms. This interpretation was based on negative cardiac enzymes, a cardiac catheterization performed in the recent past which demonstrated no obstructive disease, and his telemetry monitoring demonstrating no evidence of ventricular tachycardia. It was our impression that the patient's abdominal symptoms and dizziness may be either more GI in origin or somatic symptoms, and the patient was advised to schedule outpatient specialty follow-up including [facility] for further assessment. Of note, the patient has been evaluated by Dr. Wayne Avila at [facility], and we recommend that the patient follow up there to determine whether any additional workup is indicated. We determined that biliary etiology was less likely given his normal liver enzymes, and tachyarrhythmia is less likely given his normal telemetry during this hospitalization. DISCHARGE MEDICATIONS: Please see official discharge medication reconciliation sheet in chart , continue on all patient's home medications. DISCHARGE INSTRUCTIONS: Please follow up at [facility] and at [facility]. TIME SPENT: Greater than 30 minutes were spent on direct patient care, as well as discharge planning and preparation.
[2017-10-10] MEDS: ENOXAPARIN 40 MG/0.4 ML SYR SC SCH (13:23)
[2017-10-10] MEDS: FAMOTIDINE 20 MG TAB PO SCH (13:23)
[2017-10-10] MEDS: SENNOSIDES/DOCUSATE SODIUM TAB PO SCH (13:24)
[2017-10-10] MEDS: SOTALOL HCL 80 MG TAB PO SCH (13:24)
== END 2017-10-10 13:51 | disposition home or self-care (01) | DRG 392 ==
LOC: F2W 12:50 → OBSVTOIN 10-09 17:36 → INTOOBSV 10-09 17:36
PROVIDERS: ADMIT Hospitalist; ATTEND Hospitalist
DX: R10.13 Epigastric pain (principal); R42 Dizziness and giddiness; I25.10 Atherosclerotic heart disease of native coronary artery without angina pectoris; Z95.5 Presence of coronary angioplasty implant and graft; I10 Essential (primary) hypertension; E78.5 Hyperlipidemia, unspecified; R00.0 Tachycardia, unspecified; Z95.0 Presence of cardiac pacemaker
CPT/HCPCS: A9500; G0378; J1650; J2785

== ENCOUNTER → 2017-11-02 | Outpatient (CLI) | payer OTHER ==
--- NOTE | 2017-11-02 12:45 | CPEEG ---
[f rep st] ELECTROENCEPHALOGRAM DATE OF STUDY: 11/02/2017 INTERPRETATION: Normal EEG during wakefulness and sleep. There were no potentially epileptogenic ab normalities present in the recording. REPORT: This EEG contains 10 Hz alpha to the posterior head regions. There was no abnormal activati on at rest, during photic stimulation, or hyperventilation. The patient became drowsy and fell aslee p during the study. There was no abnormal activation during drowsiness, sleep, or during times of ar ousal. /[id number]/MODL
== END ==
LOC: FCPNEURO 09:50
PROVIDERS: ATTEND Psychiatry & Neurology Neurology
DX: R41.0 Disorientation, unspecified (principal)

== ENCOUNTER → 2017-11-03 | Outpatient (CLI) | payer OTHER | LOC: FIMAGING 08:23 | PROVIDERS: ATTEND Psychiatry & Neurology Neurology | DX: R41.0 Disorientation, unspecified (principal) ==

== ENCOUNTER → 2017-12-03 | Outpatient (CLI) | payer OTHER | LOC: BHFA 09:30 | PROVIDERS: ATTEND Internal Medicine Cardiovascular Disease | DX: I48.91 Unspecified atrial fibrillation (principal) ==

== ENCOUNTER → 2018-02-07 | Outpatient (CLI) | payer OTHER | LOC: BHFA 14:15 | PROVIDERS: ATTEND Internal Medicine Cardiovascular Disease | DX: I25.10 Atherosclerotic heart disease of native coronary artery without angina pectoris (principal); R42 Dizziness and giddiness; I10 Essential (primary) hypertension; I44.7 Left bundle-branch block, unspecified ==